=== PATIENT | female | born 1930 | race Caucasian/White ===

== ENCOUNTER 2016-09-10 15:55 | Inpatient (IN) | payer MEDICARE ==
[~2016-09-10] VITALS: Ht 162.6 cm; Wt 54.9 kg
[~2016-09-10 15:55] MED LIST: ACET-1600 PO; ASCO10004 PO; ASPI-496 PO; ASPI325T4 PO; ATOR20TA9 PO; CALC1CAP8 PO; DILT-4 PO; ESOM20CA PO; FOLI0.8T2 PO; METO25TA35 PO; MULT-709 PO; RANO500T2 PO; RIVA15TA PO; RIVA20TA PO; THYR30TA PO
[2016-09-10] MEDS ORDERED: SODIUM CHLORIDE FLUSH 10ML SYR IVF ONE (16:30)
[2016-09-10 16:42] LABS: BLOOD UREA NITROGEN 16 mg/dL (7-18)
[2016-09-10 16:43] LABS: ASPARTATE AMINO TRANSFERASE 20 U/L (15-37)
[2016-09-10 16:48] LABS: IS PT STATUS REG ER OR PRE ER? YES
[2016-09-10] MEDS ORDERED: ACETAMINOPHEN 325 MG TABLET ONE (16:51)
[2016-09-10] MEDS ORDERED: ASPIRIN 81 MG TABLET CHEW ONE (17:00)
[2016-09-10] MEDS ORDERED: ACETAMINOPHEN 325 MG TABLET PO ONE (17:00)
[2016-09-10] MEDS ORDERED: ASPIRIN 81 MG TABLET CHEW PO ONE (17:00)
[2016-09-10] MEDS ORDERED: SODIUM CHLORIDE 0.9% 1,000 ML IV ONE (17:32)
[2016-09-10] MEDS ORDERED: HEPARIN 5,000 UNITS/ML, 1ML IV ONE (18:00)
[2016-09-10] MEDS ORDERED: SODIUM CHLORIDE 0.9% 1,000ML IVBOLUS ONE (18:00)
[2016-09-10] MEDS ORDERED: HEPARIN 25,000 UNITS/500ML PMX 500 ML IV PRN (18:00)
[2016-09-10] MEDS ORDERED: HEPARIN 5,000 UNITS/ML, 1ML IV PRN (18:00)
[2016-09-10] MEDS ORDERED: CEFTRIAXONE PMX 1GM/50ML 50 ML IVPB ONE (18:00)
[2016-09-10] MEDS ORDERED: TEMAZEPAM 15 MG CAPSULE PO PRN (18:30)
[2016-09-10] MEDS ORDERED: PROMETHAZINE 25 MG/ML, 1ML IM PRN (18:30)
[2016-09-10] MEDS ORDERED: DOCUSATE 100 MG CAPSULE PO PRN (18:30)
[2016-09-10] MEDS ORDERED: ONDANSETRON 2MG/ML, 2ML IVP PRN (18:30)
[2016-09-10] MEDS ORDERED: HYDROcodone/APAP 5/325 TABLET PO PRN (18:30)
[2016-09-10] MEDS ORDERED: CEFTRIAXONE PMX 1GM/50ML 50 ML ONE (18:43)
[2016-09-10] MEDS ORDERED: HEPARIN 5,000 UNITS/ML, 1ML ONE (19:12)
[2016-09-10] MEDS ORDERED: HEPARIN 25,000 UNITS/500ML PMX 500 ML ONE (19:12)
[2016-09-10] MEDS: SODIUM CHLORIDE 0.9% 1,000 ML IV SCH (20:59)
[2016-09-10 22:41] VITALS: BP 106/56
[2016-09-10 23:15] LABS: IS PT STATUS REG ER OR PRE ER? NO
[2016-09-10 23:20] VITALS: BP 94/53
[2016-09-11] MEDS: SODIUM CHLORIDE 0.9% 1,000 ML IV SCH ×4 (00:08→23:50)
[2016-09-11 03:10] VITALS: BP 112/53
[2016-09-11 05:41] LABS: BLOOD UREA NITROGEN 15 mg/dL (7-18)
[2016-09-11 05:50] LABS: IS PT STATUS REG ER OR PRE ER? NO
[2016-09-11] MEDS ORDERED: CEFTRIAXONE PMX 1GM/50ML 50 ML IV SCH (06:00)
[2016-09-11] MEDS: PANTOPRAZOLE 40 MG IV IVPush SCH (09:00)
[2016-09-11 09:24] VITALS: BP 137/63
[2016-09-11] MEDS: METOPROLOL TARTRATE 25 MG TABLET PO SCH ×2 (10:50→21:10)
[2016-09-11] MEDS: CLOPIDOGREL 75 MG TABLET PO SCH (11:00)
[2016-09-11] MEDS ORDERED: REGADENOSON 0.4 MG/5 ML SYRINGE ONE (12:18)
[2016-09-11 16:14] VITALS: BP 125/62
[2016-09-11] MEDS ORDERED: METOPROLOL TARTRATE 25 MG TABLET PO SCH (18:00)
[2016-09-11 20:01] VITALS: BP 156/61
[2016-09-12 02:00] VITALS: BP 167/66
[2016-09-12 05:51] VITALS: BP 180/70
[2016-09-12] MEDS: METOPROLOL TARTRATE 25 MG TABLET PO SCH (05:53)
[2016-09-12] MEDS ORDERED: THYROID 30 MG TABLET PO SCH (06:00)
[2016-09-12 06:12] LABS: BLOOD UREA NITROGEN 13 mg/dL (7-18)
[2016-09-12 06:33] VITALS: BP 191/71
[2016-09-12 08:06] VITALS: BP 146/71
[2016-09-12] MEDS ORDERED: CLOPIDOGREL 75 MG TABLET PO SCH (09:00)
[2016-09-12] MEDS: PANTOPRAZOLE 40 MG IV IVPush SCH (09:00)
[2016-09-12] MEDS: CLOPIDOGREL 75 MG TABLET PO SCH (09:42)
[2016-09-12] MEDS: SODIUM CHLORIDE 0.9% 1,000 ML IV SCH (10:26)
== END 2016-09-12 12:23 | disposition home or self-care (01) | DRG 682 ==
LOC: ED 18:21 → EDIP 19:54 → 5SO 22:05 → DCLOUNGE 09-12 11:35
PROVIDERS: ADMIT Internal Medicine; ATTEND Internal Medicine
DX: N17.9 Acute kidney failure, unspecified (principal); E43 Unspecified severe protein-calorie malnutrition; I25.10 Atherosclerotic heart disease of native coronary artery without angina pectoris; R50.9 Fever, unspecified; N18.3 Chronic kidney disease, stage 3 (moderate); I13.10 Hypertensive heart and chronic kidney disease without heart failure, with stage 1 through stage 4 chronic kidney disease, or unspecified chronic kidney disease; R79.89 Other specified abnormal findings of blood chemistry; M06.9 Rheumatoid arthritis, unspecified; I48.0 Paroxysmal atrial fibrillation; I35.0 Nonrheumatic aortic (valve) stenosis; E78.5 Hyperlipidemia, unspecified; E03.9 Hypothyroidism, unspecified; Z90.710 Acquired absence of both cervix and uterus; Z95.2 Presence of prosthetic heart valve; Z82.49 Family history of ischemic heart disease and other diseases of the circulatory system; Z83.3 Family history of diabetes mellitus; Z88.1 Allergy status to other antibiotic agents; Z88.8 Allergy status to other drugs, medicaments and biological substances; Z95.5 Presence of coronary angioplasty implant and graft
CPT/HCPCS: 36415; 71010; 78452; 80048; 80053; 81003; 83605; 84439; 84443; 84484; 85025; 85520; 87040; 93005; 93017; 96361; 96374; 96375; J0696; J1644; J2785; A9502; C9898; J7030; J7512

== ENCOUNTER → 2017-12-09 | Outpatient (CLI) | payer MEDICARE ==
[~2017-12-09] MED LIST changes: +ASPI325T17 PO; -ASPI325T4 PO; -DILT-4 PO; +DILT120C75 PO; +OMNIPAQUE 350 MG/ML, 100ML BOTTLE ONE
== END | disposition home or self-care (01) ==
LOC: CFH 13:19
PROVIDERS: ATTEND Family Medicine
DX: K86.2 Cyst of pancreas (principal); M51.36 Other intervertebral disc degeneration, lumbar region; N18.9 Chronic kidney disease, unspecified; R19.7 Diarrhea, unspecified
CPT/HCPCS: 74170; 82565; Q9967

== ENCOUNTER 2019-01-01 14:18 | Emergency (ER) | payer MEDICARE ==
[~2019-01-01] VITALS: Ht 162.6 cm; Wt 59.3 kg
[2019-01-01 14:23] VITALS: BP 151/61
== END 2019-01-01 16:06 | disposition home or self-care (01) ==
LOC: ED 16:00
DX: M25.511 Pain in right shoulder (principal); I10 Essential (primary) hypertension; E78.5 Hyperlipidemia, unspecified; I48.91 Unspecified atrial fibrillation; I25.2 Old myocardial infarction; I25.10 Atherosclerotic heart disease of native coronary artery without angina pectoris; Z95.0 Presence of cardiac pacemaker
CPT/HCPCS: 99283

== ENCOUNTER 2020-05-18 10:43 | Outpatient (CLI) | payer MEDICARE ==
[~2020-05-18 10:43] MED LIST changes: +ASCO100018 PO; -ASCO10004 PO; +ATOR20TA37 PO; -ATOR20TA9 PO; -DILT120C75 PO; +DILT120C83 PO; -OMNIPAQUE 350 MG/ML, 100ML BOTTLE ONE
== END 2020-05-18 23:59 | disposition home or self-care (01) ==
LOC: CFH 10:43
PROVIDERS: ATTEND Family Medicine
DX: Z12.31 Encounter for screening mammogram for malignant neoplasm of breast (principal)
CPT/HCPCS: 77067

== ENCOUNTER → 2020-08-01 | Outpatient (CLI) | payer MEDICARE ==
[~2020-08-01] MED LIST changes: -FOLI0.8T2 PO; +FOLI0.8T5 PO
== END | disposition home or self-care (01) ==
LOC: CFH 08:43
PROVIDERS: ATTEND Family Medicine
DX: J92.9 Pleural plaque without asbestos (principal); M11.261 Other chondrocalcinosis, right knee; M25.761 Osteophyte, right knee; J98.4 Other disorders of lung; R06.02 Shortness of breath; Z95.0 Presence of cardiac pacemaker
CPT/HCPCS: 71046

== ENCOUNTER 2021-02-06 16:01 | Outpatient (CLI) | payer MEDICARE ==
[2021-02-06 16:40] LABS: MEAN CORPUSCULAR HEMOGLOBIN 32.1 pg (27.0-34.8); MEAN CORPUSCULAR HGB CONC 33.2 g/dL (32.4-35.8); MEAN PLATELET VOLUME 7.8 fL (7.4-10.4); PLATELET COUNT 171 x10^3/uL (130-400); RED BLOOD COUNT 4.73 x10^6/uL (3.82-5.3); RED CELL DISTRIBUTION WIDTH 14.1 % (9.6-15.2)
[2021-02-06 16:41] LABS: ALANINE AMINOTRANSFERASE 29 U/L (12-78); ALBUMIN 3.1 g/dL (3.4-5.0); ANION GAP 8 mmol/L (5-15); CALCIUM 8.2 mg/dL (8.5-10.1); CHLORIDE 98 mmol/L (98-107); CHOLESTEROL, TOTAL 158 mg/dL (140-239); CREATININE 1.34 mg/dL (0.55-1.02)
[2021-02-06 16:52] LABS: ALKALINE PHOSPHATASE 60 U/L (45-117); BILIRUBIN,TOTAL 0.8 mg/dL (0.2-1.0); HDL CHOL % 51 % (28-40); HDL CHOLESTEROL (DIRECT) 81 mg/dL (40-60); LDL CHOLESTEROL,CALCULATED 46 mg/dL (54-169); LDL/HDL RATIO 0.6 (0.5-3.0); TOTAL PROTEIN 7.5 g/dL (6.4-8.2); TRIGLYCERIDES 154 mg/dL (50-200); VLDL CHOLESTEROL 31 mg/dL (0-25)
[2021-02-06 17:27] LABS: BAND#(MANUAL) 0.63 x10^3/uL; BANDS%(MANUAL) 11 % (0-7); BASOS#(MANUAL) 0.06 x10^3/uL (0-0.1); BASOS% (MANUAL) 1 % (0-1); EOS#(MANUAL) 0.06 x10^3/uL (0.0-0.4); EOS% (MANUAL) 1 % (1-7); LYMPH#(MANUAL) 0.74 x10^3/uL (1-3.4); LYMPHS% (MANUAL) 13 % (22-44); MONOS% (MANUAL) 14 % (2-9); SEG#(MANUAL) 3.42 x10^3/uL (1.8-6.8); SEGS% (MANUAL) 60 % (42-75)
[2021-02-06 17:29] LABS: <PLATELET ESTIMATE> ADEQUATE; ANISOCYTOSIS 1+
[2021-02-06 17:30] LABS: <PLT MORPHOLOGY> NORMAL PLT MORPH
== END 2021-02-06 23:59 | disposition home or self-care (01) ==
LOC: LAB 16:01
PROVIDERS: ATTEND Family Medicine
DX: R79.9 Abnormal finding of blood chemistry, unspecified (principal); R94.6 Abnormal results of thyroid function studies; R42 Dizziness and giddiness; I49.9 Cardiac arrhythmia, unspecified; M12.9 Arthropathy, unspecified; E86.0 Dehydration; E03.9 Hypothyroidism, unspecified; I10 Essential (primary) hypertension; M79.10 Myalgia, unspecified site; R53.83 Other fatigue; N39.0 Urinary tract infection, site not specified
CPT/HCPCS: 36415; 80053; 80061; 83036; 84443; 85025

== ENCOUNTER 2021-02-13 14:08 | Emergency (ER) | payer MEDICARE ==
[~2021-02-13] VITALS: Ht 162.6 cm; Wt 59.8 kg
--- NOTE | 2021-02-13 14:26 | NUR ---
VICE PRESIDENT QUALITY ASSURANCE: PT SEEN BY ALMA MAE IN TRIAGE. NO CODE NEURO AT THIS TIME.
--- NOTE | 2021-02-13 14:58 | NUR ---
DAUGHTER RPTS THAT PT "SEEMS TO BE HAVING TROUBLE FINDING HER WORDS" PT ORIENTED TO PERSON, PLACE, EVENTS. ESTRELLITA, DENIES MARIA. CURRENTLY ON OMNICEF X 7 DAYSFOR SUSPECTED UTI. PT DENIES PAIN WITH URINATION OR INCREASED FREQUENCY. PT UNDRESSED AND ON GURNEY WITH MIN ASSIST. PT TO CT WITH TECH TRANSPORT
--- NOTE | 2021-02-13 14:58 | NUR ---
PT TO ROOM FROM LOBBY AT THIS TIME VIA WHEELCHAIR.
[2021-02-13 15:28] LABS: BASOPHILS % (AUTO) 2 % (0-1); EOSINOPHILS % (AUTO) 1 % (1-7); LYMPHOCYTES % (AUTO) 16 % (22-44); MEAN CORPUSCULAR HEMOGLOBIN 32.3 pg (27.0-34.8); MEAN CORPUSCULAR HGB CONC 33.8 g/dL (32.4-35.8); MEAN PLATELET VOLUME 7.6 fL (7.4-10.4); MONOCYTES % (AUTO) 10 % (2-9); NEUTROPHILS % (AUTO) 71 % (42-75); PLATELET COUNT 195 x10^3/uL (130-400); RED BLOOD COUNT 4.81 x10^6/uL (3.82-5.3); RED CELL DISTRIBUTION WIDTH 13.7 % (9.6-15.2)
[2021-02-13 15:36] LABS: ALANINE AMINOTRANSFERASE 45 U/L (12-78); ALBUMIN 3.1 g/dL (3.4-5.0); ANION GAP 9 mmol/L (5-15); CHLORIDE 107 mmol/L (98-107)
[2021-02-13 15:39] LABS: ALKALINE PHOSPHATASE 60 U/L (45-117); BILIRUBIN,TOTAL 1.1 mg/dL (0.2-1.0); TOTAL PROTEIN 7.2 g/dL (6.4-8.2)
--- NOTE | 2021-02-13 15:53 | NUR ---
DR MITCHELL AT BEDSIDE, PT ASSESSMENT AND POC DISCUSSED, QUESTIONS ANSWERED. PT DRANK GLASS OF WATER. PT AWARE OF NEED TO PROVIDE URINE SAMPLE.
--- NOTE | 2021-02-13 16:30 | NUR ---
PT OOB AND AMBULATED TO BATHROOM BUT WAS UNABLE TO VOID. PLAN FOR STRAIGHT CATH DISCUSSED AND PT AGREES.
[2021-02-13 17:23] LABS: MICROSCOPIC NOT IND
[2021-02-13 18:01] VITALS: BP 157/58
--- NOTE | 2021-02-13 19:01 | NUR ---
KENNETHAR RPT TO [facility]
== END 2021-02-13 19:02 | disposition home or self-care (01) ==
LOC: ED 14:22
DX: R41.0 Disorientation, unspecified (principal); R53.1 Weakness; I10 Essential (primary) hypertension; E78.5 Hyperlipidemia, unspecified; I48.91 Unspecified atrial fibrillation; I25.2 Old myocardial infarction; R51.9 Headache, unspecified
CPT/HCPCS: 36415; 70450; 80053; 81003; 85025; 93005; 99285